=== PATIENT | male | born 1950 | race Caucasian/White ===

== ENCOUNTER 2016-12-18 11:00 | Inpatient (IN) | payer MEDICARE, OTHER ==
[2016-12-15 11:09] LABS: BASOPHILS 0.2 %; BASOPHILS ABSOLUTE 0.01 10/3/uL (0.0-0.16); EOSINOPHILS 3.9 %; EOSINOPHILS ABSOLUTE 0.21 10/3/uL (0.0-0.53); HEMATOCRIT 41.8 % (40.0-51.0); HEMOGLOBIN 14.2 g/dL (13.6-17.8); IMMATURE GRANULOCYTES 0.6 %; IMMATURE GRANULOCYTES ABSOLUTE 0.03 10/3/uL (0.0-0.11); LYMPHOCYTES 19.8 %; LYMPHOCYTES ABSOLUTE 1.06 10/3/uL (0.67-4.30); MEAN PLATELET VOLUME 9.4 fL (9.2-13.0); MONOCYTES 11.6 %; MONOCYTES ABSOLUTE 0.62 10/3/uL (0.21-1.20); NEUTROPHILS 63.9 %; NEUTROPHILS ABSOLUTE 3.42 10/3/uL (2.02-8.40); PLATELET COUNT 151 10/3/uL (150-400); RBC DISTRIBUTION WIDTH 13.4 % (12.0-16.0); WHITE BLOOD CELLS 5.4 10/3/uL (4.5-10.5)
[2016-12-15 11:10] LABS: MANUAL DIFF NO %; MEAN CORPUSCULAR VOLUME 97.2 fL (80-100)
[2016-12-15 11:26] LABS: CALCIUM, SERUM 9.4 MG/DL (8.5-10.4); CHLORIDE, SERUM 100 MMOL/L (96-112); CO2 (CARBON DIOXIDE) 27 MMOL/L (24-34); CREATININE 1.19 MG/DL (0.70-1.30); GFR AFRICAN AMERICAN 72 ML/MIN (>=60); GFR NON AFRICAN AMERICAN 62 ML/MIN (>=60); GLUCOSE, SERUM 91 MG/DL (60-99); POTASSIUM, SERUM 4.4 MMOL/L (3.5-5.3); SODIUM, SERUM 138 MMOL/L (135-148)
[2016-12-15 11:27] LABS: BUN (BLOOD UREA NITROGEN) 19 MG/DL (6-23)
--- NOTE | ~2016-12-18 | OP ---
Record Of Operation [facility] [address] [place]. [address] NAME: CHERI RICHARDS : 46 STATUS : ADM Aniya PAT#: [id number] AGE: 66 ADM/REG DATE : 12/18/16 MR#: [id number] REPORT SERV DATE: 12/18/16 DICTATED BY: NOMAN IVORY DATE: 12/18/16 REPORT STATUS : Draft TRANSCRIBED BY: MODL DATE: 12/18/16 DATE OF PROCEDURE: 12/18/2016 PREOPERATIVE DIAGNOSIS: Claudication, right lower extremity. 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 SURGERIES PERFORMED: 1. Aortogram. 2. Bilateral lower extremity runoffs. 3. Open right common femoral endarterectomy with bovine patch angioplasty. SURGEON: Noman Ivory M.D. ASSIST: Lorie. DESCRIPTION OF PROCEDURE: The patient was placed under IV sedation. Both groins were prepped and draped in a sterile fashion. Left femoral artery was cannulated with ultrasound direction. Needle, wire, and sheath were placed. UF catheter placed into the abdominal aorta and aortogram done showing the renal artery, at least one renal artery was patent. The aorta was patent. Both common iliacs were patent. UF was pulled down to the distal aorta on the right side. The common and external iliac arteries were patent, the internal was small, and the common femoral completely occluded over 4- to 6-cm segment the SFA and profunda both field. The SFA was patent down to the popliteal with two-vessel runoff. On the left side, the internal and external iliacs were patent. The common femoral showed severe disease, although there was flow through the femoral artery into the superficial femoral and profunda. The popliteal was open and had two-vessel runoff on the left side as well. The UF was manipulated up and over the bifurcation and attempt was made to access through the common femoral occlusion, but this was not possible. Therefore, discussion was had with his about proceeding with common femoral endarterectomy, which would be the only way of opening up this total common femoral artery occlusion. He did agree to the procedure. He was then placed under general anesthesia. A vertical incision was made over the common femoral vessel, was dissected with skin and subcutaneous tissue. The common femoral, profunda, and SFA were all encircled. The SFA was soft. The profunda was diseased, calcific. The common femoral was lead pipe with very hard calcific plaque extending up underneath the inguinal ligament past the circumflex femoral vessels. He was given 3000 units of heparin. A clamp was able to be placed on the mid external iliac artery and then vessel loops were used for the profunda and SFA. Arteriotomy made in the SFA just proximal and then Whitley scissors opened up the femoral vessel that was totally occluded. Dense calcified plaque was noted. Endarterectomy carried out. With a [place] elevator and a hemostat, eversion done of the profunda and then the external was able to be done some eversion so that we were able to establish arterial inflow. The opening of the vessel was then closed with a bovine patch using running 6-0 Prolene suture. When this was completed, retrograde and prograde flushing carried out and the clamps released. He did require repair of the profunda due to the calcified plaque resulting in a tear proximal. This was repaired. He did have good Doppler signals in the SFA and profunda. The wounds were Record Of Operation [address] [address] NAME: CHERI RICHARDS : 46 STATUS : ADM Aniya PAT#: [id number] AGE: 66 ADM/REG DATE : 12/18/16 MR#: [id number] REPORT SERV DATE: 12/18/16 DICTATED BY: NOMAN IVORY DATE: 12/18/16 REPORT STATUS : Draft TRANSCRIBED BY: MODL DATE: 12/18/16 irrigated and closed with 2-0 Vicryl for deep tissue, 3-0 Vicryl superficial, and skin with 4-0 Monocryl subcuticular suture. Dermabond dressing applied. ESTIMATED BLOOD LOSS: 100 mL. The left femoral sheath had been removed earlier and had been managed by just manual pressure. He was taken to the recovery room in stable condition. MG/DAMON Noman Ivory M.D. / [id number] CC: Noman Ivory M.D.
[~2016-12-18 11:00] MED LIST: ACET500CAP PO; ALTA2.5 PO; ALTA5 PO; ASAB PO; CALTRA600D PO; CIP5 PO; COMBIVENT INH; CYANO1000T PO; DURA25 TOP; FLOMAX4 PO; FOLIC ACID800 MCG PO; FOLIC PO; HALF81 PO; L20 PO; LEVAQUIN750 MG PO; LEVOTHYROXIN150 MCG PO; LEVOTHYROXIN175 MCG PO; LORTAB10 PO; MCZ25 PO; MIRALAXPKT PO; NEUR400 PO; NORCO1 TA2 PO; OPDIVO IV; P5 PO; PROVHFA INH; RITALIN5 PO; VITAMIN A8000 UNIT PO; VITAMIN B-122500 MCG SL; VITAMIN D31000 UNIT PO; VITE1000 PO; XANAX1 MG PO
[2016-12-19 03:41] LABS: BASOPHILS 0.1 %; BASOPHILS ABSOLUTE 0.01 10/3/uL (0.0-0.16); EOSINOPHILS 0 %; HEMATOCRIT 36.1 % (40.0-51.0); HEMOGLOBIN 12.2 g/dL (13.6-17.8); IMMATURE GRANULOCYTES 0.3 %; IMMATURE GRANULOCYTES ABSOLUTE 0.02 10/3/uL (0.0-0.11); LYMPHOCYTES 5.5 %; LYMPHOCYTES ABSOLUTE 0.43 10/3/uL (0.67-4.30); MANUAL DIFF NO %; MEAN CORPUS HGB CONC 33.8 g/dL (32.0-36.0); MEAN CORPUSCULAR HEMOGLOB 32.8 pg (26.0-34.0); MEAN PLATELET VOLUME 9.5 fL (9.2-13.0); MONOCYTES 4.9 %; MONOCYTES ABSOLUTE 0.38 10/3/uL (0.21-1.20); NEUTROPHILS 89.2 %; NEUTROPHILS ABSOLUTE 6.97 10/3/uL (2.02-8.40); PLATELET COUNT 174 10/3/uL (150-400); RBC DISTRIBUTION WIDTH 13.1 % (12.0-16.0); RED CELL COUNT 3.72 10/6/uL (4.7-6.1); WHITE BLOOD CELLS 7.8 10/3/uL (4.5-10.5)
[2016-12-19 03:49] LABS: CHLORIDE, SERUM 103 MMOL/L (96-112); CO2 (CARBON DIOXIDE) 25 MMOL/L (24-34); CREATININE 1.26 MG/DL (0.70-1.30); GFR AFRICAN AMERICAN 67 ML/MIN (>=60); GFR NON AFRICAN AMERICAN 58 ML/MIN (>=60); POTASSIUM, SERUM 4.8 MMOL/L (3.5-5.3); SODIUM, SERUM 138 MMOL/L (135-148)
[2016-12-19 03:52] LABS: BUN (BLOOD UREA NITROGEN) 27 MG/DL (6-23); CALCIUM, SERUM 8.3 MG/DL (8.5-10.4); GLUCOSE, SERUM 196 MG/DL (60-99)
[2017-03-26] MEDS ORDERED: LEVOTHYROXIN125 MCG PO (17:05)
[2017-03-26] MEDS ORDERED: LIPITOR10 PO (17:10)
[2017-04-04] MEDS ORDERED: PCET PO (08:46)
== END 2016-12-20 11:35 | disposition home or self-care (01) | DRG 254 ==
LOC: SDC 11:00 → SDC/OF 15:30 → CVICU 18:26 → 2SO 12-19 10:14
PROVIDERS: Surgery Vascular Surgery
PROC: 04CK0ZZ Extirpation of Matter from Right Femoral Artery, Open Approach (ICD-10-PCS; principal; 2016-12-18 12:45)
PROC: 04UK0KZ Supplement Right Femoral Artery with Nonautologous Tissue Substitute, Open Approach (ICD-10-PCS; 2016-12-18 12:45)
PROC: B41D1ZZ Fluoroscopy of Aorta and Bilateral Lower Extremity Arteries using Low Osmolar Contrast (ICD-10-PCS; 2016-12-18 12:45)
DX: I70.219 Atherosclerosis of native arteries of extremities with intermittent claudication, unspecified extremity (principal); J44.9 Chronic obstructive pulmonary disease, unspecified; M19.90 Unspecified osteoarthritis, unspecified site; N40.0 Benign prostatic hyperplasia without lower urinary tract symptoms; E03.9 Hypothyroidism, unspecified; F41.9 Anxiety disorder, unspecified; Z85.118 Personal history of other malignant neoplasm of bronchus and lung
CPT/HCPCS: 35371; 36246; 75625; 75716; 80048; 83735; 85025; 88304; 88311; 93005; A9270-GY; C1757; C1768; C1769; C1894; J0690; J1170; J2370; J2405; J3010; Q9966